=== PATIENT | male | born 1960 | race Caucasian/White ===

== ENCOUNTER 2019-03-17 20:27 | Emergency (ER) | payer BC ==
[2019-03-17 20:34] VITALS: RESP 18; TEMP 97.8
[2019-03-17] MEDS ORDERED: ONDANSETRON 4 MG/2 ML VIAL IVP STA (21:22)
[2019-03-17] MEDS ORDERED: PANTOPRAZOLE 40 MG/10 ML VIAL IVP STA (21:22)
[2019-03-17] MEDS ORDERED: SODIUM CHLORIDE 0.9% 1,000 ML IV STA (21:22)
[2019-03-17] MEDS ORDERED: DICYCLOMINE 10 MG CAP PO STA (21:23)
--- NOTE | 2019-03-17 21:26 | ED ---
Abdominal Pain HPI - General Chief Complaint: Abdominal Pain Stated Complaint: R Side Pain Time Seen by Provider: 03/17/19 20:37 Source: patient Mode of arrival: ambulatory Limitations: no limitations - History of Present Illness Initial Comments: Patient is a 58-year-old male presenting to the emergency room with a chief complaint of abdominal pain. Patient reports he developed suprapubic pain about 3 days ago that also radiates to his lower right flank region. Patient is also complaining of increased urgency frequency and dysuria. Patient states that he might have some abdominal bloating but is not completely sure. Patient reports the pain is not exacerbated with food intake. Patient reports the pain is dull and about a 4. Patient denies taking medication to alleviate the symptoms. Patient denies any previous abdominal surgeries. Patient does report nausea but no vomiting or diarrhea. Patient denies any hematuria, hematochezia or melena. - Related Data Home Medications Medication Instructions Recorded Confirmed Esomeprazole Magnesium [NexIUM 20 mg PO HS 03/17/19 03/17/19 24Hr] Fluticasone Nasal [place] [Flonase 1 spray EA NOSTRIL DAILY PRN 03/17/19 03/17/19 Nasal [place]] Lisdexamfetamine Dimesylate 50 mg PO DAILY PRN 03/17/19 03/17/19 [Vyvanse] Lisinopril-Hctz 20-25 mg 1 tab PO HS 03/17/19 03/17/19 [Zestoretic 20-25] Mometasone/Formoterol [Dulera 200 2 puff INHALATION RT-BID 03/17/19 03/17/19 Mcg/5 Mcg Inhaler] Montelukast [Singulair] 10 mg PO DAILY 03/17/19 03/17/19 amLODIPine [Norvasc] 5 mg PO HS 03/17/19 03/17/19 Previous Rx's Medication Instructions Recorded Ciprofloxacin [Cipro Susp] 500 mg PO BID #20 ml 03/18/19 metroNIDAZOLE [Flagyl] 500 mg PO TID #30 tab 03/18/19 Allergies Allergy/AdvReac Type Severity Reaction Status Date / Time Penicillins Allergy Unknown Verified 03/17/19 21:23 Childhood Review of Systems ROS Statement: Those systems with pertinent positive or pertinent negative responses have been documented in the HPI. ROS Other: All systems not noted in ROS Statement are negative. Past Medical History Past Medical History: Asthma, GERD/Reflux, Hypertension History of Any Multi-Drug Resistant Organisms: None Reported Past Surgical History: No Surgical Hx Reported Past Psychological History: No Psychological Hx Reported Smoking Status: Former smoker Past Alcohol Use History: None Reported Past Drug Use History: None Reported General Exam Limitations: no limitations General appearance: alert, in no apparent distress, obese Head exam: Present: atraumatic, normocephalic, normal inspection Eye exam: Present: normal appearance Pupils: Present: normal accommodation ENT exam: Present: normal exam, mucous membranes moist, normal external ear exam Neck exam: Present: normal inspection, full ROM Respiratory exam: Present: normal lung sounds bilaterally Cardiovascular Exam: Present: regular rate, normal rhythm, normal heart sounds GI/Abdominal exam: Present: soft, tenderness (Suprapubic tenderness with palpation. Negative Rovsing, negative obturator, negative psoas., Negative Cardenas sign.), normal bowel sounds. Absent: guarding, rebound, rigid, mass, bruit, pulsatile mass, hernia Extremities exam: Present: normal inspection, full ROM Back exam: Present: normal inspection, full ROM. Absent: tenderness, CVA tenderness (R), CVA tenderness (L) Neurological exam: Present: alert, oriented X3 Psychiatric exam: Present: normal affect, normal mood Skin exam: Present: warm, intact, normal color Course Vital Signs 03/17/19 03/17/19 20:31 22:20 Temperature 97.8 F Pulse Rate 76 76 Respiratory 18 18 Rate Blood Pressure 178/97 151/80 O2 Sat by Pulse 95 96 Oximetry Medical Decision Making - Medical Decision Making Patient is a 58-year-old male presenting to the emergency department with a chief complaint of abdominal pain. Patient had severe suprapubic and right flan k pain today that seems to have subsided after he took an ibuprofen. Patient was given fluids, Zofran, Bentyl and Protonix. CBC is indicative a mild leukocytosis otherwise unremarkable. CMP showed normal kidney function. UA is negative for UTI but does show microscopic hematuria. I suspect the patient to have a kidney stone. KUB is unremarkable. Considering the patient had severe amount of pain earlier today, CAT scan was obtained. CT of abdomen and pelvis is indicative of bilateral renal stones with no hydronephrosis. Sigmoid diverticulitis along with diverticulosis is also noted. Patient will be treated with Cipro and Flagyl for 10 days. Patient advised not to drink alcohol or perform strenuous physical activity. Patient given instructions on a diverticulitis diet. Patient advised to alternate between Tylenol and ibuprofen for pain control. Strict return parameters were thoroughly discussed with patient was understanding and agreeable. Patient advised to follow with primary care. Case discussed with physician. - Lab Data Result diagrams: 03/17/19 20:56 03/17/19 20:56 Lab Results 03/17/19 03/17/19 03/17/19 Range/Units 20:56 20:56 20:56 WBC 11.2 H (3.8-10.6) k/uL RBC 4.61 (4.30-5.90) m/uL Hgb 14.3 (13.0-17.5) gm/dL Hct 41.9 (39.0-53.0) % MCV 91.1 (80.0-100.0) fL MCH 31.1 (25.0-35.0) pg MCHC 34.2 (31.0-37.0) g/dL RDW 12.3 (11.5-15.5) % Plt Count 300 (150-450) k/uL Neutrophils % 74 % Lymphocytes % 17 % Monocytes % 5 % Eosinophils % 1 % Basophils % 0 % Neutrophils # 8.3 H (1.3-7.7) k/uL Lymphocytes # 1.9 (1.0-4.8) k/uL Monocytes # 0.6 (0-1.0) k/uL Eosinophils # 0.1 (0-0.7) k/uL Basophils # 0.0 (0-0.2) k/uL Sodium 137 (137-145) mmol/L Potassium 4.3 (3.5-5.1) mmol/L Chloride 104 (98-107) mmol/L Carbon Dioxide 23 (22-30) mmol/L Anion Gap 10 mmol/L BUN 20 (9-20) mg/dL Creatinine 1.04 (0.66-1.25) mg/dL Est GFR (CKD-EPI)AfAm >90 (>60 ml/min/1.73 sqM) Est GFR (CKD-EPI)NonAf 79 (>60 ml/min/1.73 sqM) Glucose 160 H (74-99) mg/dL Calcium 9.9 (8.4-10.2) mg/dL Total Bilirubin 0.3 (0.2-1.3) mg/dL AST 31 (17-59) U/L ALT 49 (21-72) U/L Alkaline Phosphatase 82 (38-126) U/L Total Protein 7.4 (6.3-8.2) g/dL Albumin 4.2 (3.5-5.0) g/dL Amylase 53 (30-110) U/L Lipase 96 (23-300) U/L Urine Color Yellow Urine Appearance Clear (Clear) Urine pH 6.5 (5.0-8.0) Ur Specific [place] 1.020 (1.001-1.035) Urine Protein Trace H (Negative) Urine Glucose (UA) Negative (Negative) Urine Ketones 1+ H (Negative) Urine Blood Trace H (Negative) Urine Nitrite Negative (Negative) Urine Bilirubin Negative (Negative) Urine Urobilinogen <2.0 (<2.0) mg/dL Ur Leukocyte Esterase Negative (Negative) Urine RBC 9 H (0-5) /hpf Urine WBC 3 (0-5) /hpf Ur Squamous Epith Cells <1 (0-4) /hpf Urine Mucus Rare H (None) /hpf Disposition Clinical Impression: Diverticulitis, Renal stones Disposition: HOME SELF-CARE Condition: Stable Instructions (If sedation given, give patient instructions): Diverticulitis (ED) Additional Instructions: Please take prescribed medication as directed. Please avoid drinking any alcohol. Please follow diverticulitis diet instructions. Please return to emergency department if symptoms worsen. Please follow with primary care. Prescriptions: Ciprofloxacin [Cipro Susp] 500 mg PO BID #20 ml metroNIDAZOLE [Flagyl] 500 mg PO TID #30 tab Is patient prescribed a controlled substance at d/c from ED?: No Referrals: Kirstin Cook DO [Primary Care Provider] - 1-2 days Time of Disposition: 01:00
[2019-03-17 21:42] LABS: Basophils % (A) 0 %; Eosinophils # (A) 0.1 k/uL (0-0.7); Eosinophils % (A) 1 %; HCT 41.9 % (39.0-53.0); HGB 14.3 gm/dL (13.0-17.5); Lymphocytes # (A) 1.9 k/uL (1.0-4.8); Lymphocytes % (A) 17 %; MCH 31.1 pg (25.0-35.0); MCHC 34.2 g/dL (31.0-37.0); MCV 91.1 fL (80.0-100.0); Mean Platelet Volume 6.5; Monocytes # (A) 0.6 k/uL (0-1.0); Monocytes % (A) 5 %; Neutrophils # (A) 8.3 k/uL (1.3-7.7); Neutrophils % (A) 74 %; Platelet Count 300 k/uL (150-450); RBC 4.61 m/uL (4.30-5.90); RDW 12.3 % (11.5-15.5); WBC 11.2 k/uL (3.8-10.6)
[2019-03-17 21:44] LABS: Appearance,Urine Clear (Clear); Bilirubin,Urine Negative (Negative); Blood,Urine Trace (Negative); Color,Urine Yellow; Glucose,Urine (UA) Negative (Negative); Ketones,Urine 1+ (Negative); Leukocyte Esterase,Urine Negative (Negative); Mucus,Urine Rare /hpf; Nitrite,Urine Negative (Negative); PH, Urine 6.5 (5.0-8.0); Protein,Urine Trace (Negative); RBC,Urine 9 /hpf (0-5); Squamous Epithelial Cell,Urine <1 /hpf (0-4); Urobilinogen,Urine <2.0 mg/dL (<2.0)
[2019-03-17 21:52] LABS: ALT 49 U/L (21-72); AST 31 U/L (17-59); African American GFR (CKD) >90 (>60 ml/min/1.73 sqM); Albumin 4.2 g/dL (3.5-5.0); Alkaline Phosphatase 82 U/L (38-126); Amylase 53 U/L (30-110); Anion Gap 10 mmol/L; Blood Urea Nitrogen 20 mg/dL (9-20); Calcium 9.9 mg/dL (8.4-10.2); Carbon Dioxide 23 mmol/L (22-30); Chloride 104 mmol/L (98-107); Glucose 160 mg/dL (74-99); Potassium 4.3 mmol/L (3.5-5.1); Sodium 137 mmol/L (137-145); Total Bilirubin 0.3 mg/dL (0.2-1.3); Total Protein 7.4 g/dL (6.3-8.2)
--- NOTE | 2019-03-17 22:22 | XR ---
EXAMINATION TYPE: XR KUB DATE OF EXAM: 03/17/2019 COMPARISON: NONE HISTORY: Right flank pain TECHNIQUE: 2 views upright FINDINGS: Bowel gas pattern is normal. There is no sign of intestinal obstruction or pneumoperitoneum . Fecal pattern is normal. There is no evidence of a mass. There are no pathologic calcifications ove r the kidneys. IMPRESSION: Nonacute abdomen.
--- NOTE | 2019-03-18 00:27 | CT ---
EXAMINATION TYPE: CT abdomen pelvis w con DATE OF EXAM: 03/17/2019 COMPARISON: 08/31/2010 HISTORY: Patient presents with upper abdominal pain. CT DLP: 1910.9 mGycm Automated exposure control for dose reduction was used. TECHNIQUE: Helical acquisition of images was performed from the lung bases through the pelvis. CONTRAST: Performed without Oral Contrast and with IV Contrast, patient injected with 100mL mL of Isovue 300. FINDINGS: There is mild subsegmental atelectasis at the lung bases. There is no pleural effusion. Heart size is normal. There is no pericardial effusion. Liver spleen stomach pancreas gallbladder appear normal. B ile ducts are not dilated. There is no adrenal mass. Kidneys have normal size. There are multiple small bilateral renal calculi that measure up to 3 mm. There is a larger 6 mm calculus upper pole right kidney. There is no hydrone phrosis. Ureters are not dilated. There is no retroperitoneal adenopathy. Bladder distends smoothly. There is no inguinal hernia. There are sigmoid diverticula. There is some fat stranding and wall thickening around the mid sigmoid colon. There is no free air. There is no asc ites. Appendix appears normal. There is small umbilical hernia that contains fat. Lumbar spine is intact. There is narrowing at L5-S1 disc space. Bony pelvis is intact. There is no evidence of a bowel obstruction. IMPRESSION: THERE IS EVIDENCE OF SIGMOID DIVERTICULITIS. MULTIPLE SIGMOID DIVERTICULA. THIS APPEARS NEW COMPARED TO OLD EXAM. MULTIPLE BILATERAL RENAL CALCULI ARE INCREASED COMPARED TO OLD EXAM. NO RENAL OBSTRUCTION.
[2019-03-18] MEDS ORDERED: ACET/COD 300 MG/30 MG STARTER PACK 6 TAB BTL PO STA (01:00)
[2019-03-18 01:28] VITALS: BP 168/100; PULSE 73
== END 2019-03-18 01:28 | disposition home or self-care (01) ==
LOC: EC 20:27
DX: N20.0 Calculus of kidney (principal); K57.32 Diverticulitis of large intestine without perforation or abscess without bleeding; D72.829 Elevated white blood cell count, unspecified; J45.909 Unspecified asthma, uncomplicated; K21.9 Gastro-esophageal reflux disease without esophagitis; I10 Essential (primary) hypertension; Z87.891 Personal history of nicotine dependence; Z88.0 Allergy status to penicillin; Z79.51 Long term (current) use of inhaled steroids; Z79.899 Other long term (current) drug therapy
CPT/HCPCS: 36415; 80053; 82150; 83690; 85025; 81001; 74018; 74177; 99284; 96374; 96375; 96361 ×4; J2405; C9113; Q9967